=== PATIENT | male | born 1940 ===

== ENCOUNTER 2016-12-12 11:37 | Emergency (ER) | payer MEDICARE, OTHER ==
[2016-12-12 11:37] VITALS: BMI 29.1
[2016-12-12] MEDS ORDERED: Sodium Chloride 0.9% 1,000 ML IV ONE ×2 (11:57→14:14)
--- NOTE | 2016-12-12 12:11 | C.PDOC ---
History Of Present Illness 76-year-old male, PMHx includes Diabetes, Hypertension, HIV, Asthma, presents to the emergency department with complaints of mild dizziness that is associated with an elevated blood sugar. Patient has been evaluated in the ED for same complaint multiple times in past. Denies any nausea/vomiting, diarrhea , fevers, chills, shortness of breath, headaches, chest pain or any other associated symptoms. No other complaints at this time. Time Seen by Provider: 12/12/16 11:54 Chief Complaint (Nursing): High Blood Sugar History Per: Patient History/Exam Limitations: no limitations Onset/Duration Of Symptoms: Days Current Symptoms Are (Timing): Still Present Past Medical History Reviewed: Historical Data, Nursing Documentation, Vital Signs Vital Signs: Last Vital Signs Temp 98.2 F 12/12/16 15:21 Pulse 73 12/12/16 15:21 Resp 16 12/12/16 15:21 BP 126/81 12/12/16 15:21 Pulse Ox 96 12/12/16 15:21 - Medical History PMH: Arthritis (Not on medicine), Asthma, Cardia Arrhythmia, Diabetes, HIV (On anti-viral meds), HTN, Hypercholesterolemia, Hypothyroidism Surgical History: - [facility] Procedures CORNEAL REPAIR NEC (10/27/13) CORONAR ARTERIOGR-2 CATH (05/13/14) LEFT HEART CARDIAC CATH (05/13/14) LT HEART ANGIOCARDIOGRAM (05/13/14) PTERYGIUM EXCISION NEC (10/27/13) Family History: States: Unknown Family Hx - Social History Hx Tobacco Use: No Hx Alcohol Use: No Hx Substance Use: No - Immunization History Hx Tetanus Toxoid Vaccination: No Hx Influenza Vaccination: No Hx Pneumococcal Vaccination: No Review Of Systems Except As Marked, All Systems Reviewed And Found Negative. Constitutional: Negative for: Fever, Chills Cardiovascular: Negative for: Chest Pain, Palpitations Gastrointestinal: Negative for: Nausea, Vomiting Genitourinary: Negative for: Dysuria, Frequency Musculoskeletal: Negative for: Back Pain Skin: Negative for: Rash Neurological: Positive for: Dizziness. Negative for: Weakness, Numbness Physical Exam - Physical Exam Appears: Non-toxic, No Acute Distress Skin: Warm, Dry, No Rash Head: Atraumatic, Normacephalic Eye(s): bilateral: Normal Inspection, PERRL Nose: Normal Oral Mucosa: Moist Lips: Normal Appearing Neck: Normal ROM Cardiovascular: Rhythm Regular Respiratory: Normal Breath Sounds, No Accessory Muscle Use Extremity: Normal ROM Neurological/Psych: Oriented x3, Normal Speech ED Course And Treatment - Laboratory Results Result Diagrams: 12/12/16 12:34 12/12/16 12:34 O2 Sat by Pulse Oximetry: 98 Medical Decision Making Medical Decision Making: Impression Dizziness and elevated blood sugar. Plan: * VBG * EKG * CMP, Trop I * CBC * IVF, Urinalysis * Reassess and Disposition 3:40pm - Patient is feeling better. Patient instructed to follow up with his doctor tomorrow for a blood sugar check. Disposition - Disposition Disposition: HOME/ ROUTINE Disposition Time: 15:30 Condition: IMPROVED Additional Instructions: Thank you for letting us take care of you today. Your provider was Dr. Simms. You were treated for high blood sugar. The emergency medical care you received today was directed at your acute symptoms. If you were prescribed any medication, please fill it and take as directed. It may take several days for your symptoms to resolve. Return to the Emergency Department if your symptoms worsen, do not improve, or if you have any other problems. Please contact your doctor or call one of the physicians/clinics you have been referred to that are listed on the Patient Visit Information form that is included in your discharge packet. Bring any paperwork you were given at discharge with you along with any medications you are taking to your follow up visit. Our treatment cannot replace ongoing medical care by a primary care provider (PCP) outside of the emergency department. Thank you for allowing the [facility] team to be part of your care today. Follow up with your doctor tomorrow for a blood sugar check. Instructions: Diabetic Hyperglycemia (ED) - Clinical Impression Clinical Impression: Hyperglycemia - Scribe Statement The provider has reviewed the documentation as recorded by the Priya Tamayo All medical record entries made by the Floribtiesha were at my direction and personally dictated by me. I have reviewed the chart and agree that the record accurately reflects my personal performance of the history, physical exam, medical decision making, and the department course for this patient. I have also personally directed, reviewed, and agree with the discharge instructions and disposition.
[2016-12-12] MEDS ORDERED: Sodium Chloride 0.9% 1,000 ML ONE ×2 (12:36→14:18)
[2016-12-12 12:38] LABS: BASO % 0.5 % (0.0-2.0); EOS # 0.3 K/uL (0.0-0.7); EOS % 5.3 % (0.0-4.0); HEMATOCRIT 44.1 % (35.0-51.0); LYMPH # 1.8 K/uL (1.0-4.3); LYMPH % 36.2 % (20.0-40.0); MEAN CELL VOLUME 94.8 fL (80.0-94.0); MEAN CORPUSCULAR HEMOGLOBIN 32.1 pg (27.0-31.0); MEAN CORPUSCULAR HGB CONC 33.9 g/dL (33.0-37.0); MONO # 0.4 K/uL (0.0-0.8); MONO % 8.2 % (0.0-10.0); RED CELL DISTRIBUTION WIDTH 12.9 % (11.5-14.5); WHITE BLOOD COUNT 5.1 K/uL (4.8-10.8)
[2016-12-12 12:41] LABS: RBC URINE < 1 /hpf (0-3); URINE BILIRUBIN NEGATIVE (NEGATIVE); URINE COLOR Straw (YELLOW); URINE GLUCOSE (UA) 3+ mg/dL (Normal); URINE KETONE 1+ mg/dL (NEGATIVE); URINE LEUKOCYTE ESTERASE NEG Leu/uL (Negative); URINE PROTEIN 1+ mg/dL (NEGATIVE); URINE UROBILINOGEN NORMAL mg/dL (0.2-1.0)
[2016-12-12 12:43] LABS: VENOUS BLOOD GAS BASE EXCESS -1.7 mmol/L (0.0-2.0); VENOUS BLOOD GAS PCO2 45 mmHg (40-60); VENOUS BLOOD PH 7.34 (7.32-7.43)
[2016-12-12 12:44] LABS: URINE BLOOD TRACE (NEGATIVE)
[2016-12-12] MEDS ORDERED: (Novolin R) Insulin Human Regular 100 units/ml vial IV STA (12:48)
[2016-12-12 12:49] LABS: CHLORIDE 96 mmol/L (98-107); POTASSIUM 4.3 mmol/L (3.6-5.2); SODIUM 136 mmol/L (132-148)
[2016-12-12 12:51] LABS: GFR AFRICAN-AMERICAN > 60
[2016-12-12 12:52] LABS: ALB/GLOB RATIO 1.7 (1.0-2.1); ALKALINE PHOSPHATASE 63 U/L (38-126); ALT/SGPT 18 U/L (21-72); AST/SGOT 19 U/L (17-59); BILIRUBIN,TOTAL 0.6 mg/dL (0.2-1.3); BLOOD UREA NITROGEN 24 mg/dL (9-20); CARBON DIOXIDE 25 mmol/L (22-30); GLUCOSE,RANDOM 373 mg/dL (75-110); TOTAL PROTEIN 6.8 g/dL (6.3-8.3)
[2016-12-12 12:53] LABS: CALCIUM 9.5 mg/dl (8.6-10.4)
[2016-12-12] MEDS ORDERED: (Novolin R) Insulin Human Regular 100 units/ml vial ONE (13:11)
[2016-12-12 15:22] VITALS: PULSE 73; RESP 16
[2016-12-12 15:43] VITALS: O2SAT 98
[2016-12-12 16:03] VITALS: BP 134/78; TEMP 97.8
--- NOTE | 2017-01-10 11:55 | CARD ---
APPROVED REPORT EKG Measurement Heart [id number] HI 160P46 [id number] <Conclusion> Normal sinus rhythm Normal ECG
== END 2016-12-12 16:02 | disposition home or self-care (01) ==
LOC: C.ER 11:37
DX: E11.65 Type 2 diabetes mellitus with hyperglycemia (principal)
CPT/HCPCS: 80053; 81001; 82009; 82803; 82948; 84484; 85025; 93005; 96360; 99284; J7040

== ENCOUNTER 2017-02-05 12:15 | Emergency (ER) | payer MEDICARE, OTHER ==
[2017-02-05 12:16] VITALS: BMI 29.1
[2017-02-05 12:32] VITALS: TEMP 97.5
[2017-02-05 13:02] LABS: BASO % 0.4 % (0.0-2.0); EOS # 0.1 K/uL (0.0-0.7); EOS % 2.8 % (0.0-4.0); HEMATOCRIT 40.9 % (35.0-51.0); LYMPH # 1.8 K/uL (1.0-4.3); LYMPH % 37.1 % (20.0-40.0); MEAN CELL VOLUME 94.6 fL (80.0-94.0); MEAN CORPUSCULAR HEMOGLOBIN 32.2 pg (27.0-31.0); MEAN PLATELET VOLUME 7.9 fL (7.2-11.7); MONO # 0.4 K/uL (0.0-0.8); NRBC % 0.2 % (0.0-2.0); RED CELL DISTRIBUTION WIDTH 13.6 % (11.5-14.5); WHITE BLOOD COUNT 4.7 K/uL (4.8-10.8)
[2017-02-05 13:09] LABS: DRAW SITE VBG; VENOUS BLOOD GAS BASE EXCESS 2.5 mmol/L (0.0-2.0); VENOUS BLOOD GAS PCO2 48 mmHg (40-60); VENOUS BLOOD PH 7.38 (7.32-7.43)
[2017-02-05] MEDS ORDERED: Sodium Chloride 0.9% 1,000 ML IV ONE ×2 (13:13→15:09)
[2017-02-05 13:23] LABS: CHLORIDE 93 mmol/L (98-107); POTASSIUM 4.2 mmol/L (3.6-5.2); SODIUM 133 mmol/L (132-148)
[2017-02-05 13:25] LABS: ALB/GLOB RATIO 1.7 (1.0-2.1); AST/SGOT 18 U/L (17-59); BILIRUBIN,TOTAL 0.7 mg/dL (0.2-1.3); CARBON DIOXIDE 27 mmol/L (22-30); GFR AFRICAN-AMERICAN > 60; TOTAL PROTEIN 6.9 g/dL (6.3-8.3)
[2017-02-05 13:26] LABS: ALKALINE PHOSPHATASE 75 U/L (38-126); ALT/SGPT 22 U/L (21-72); BLOOD UREA NITROGEN 24 mg/dL (9-20)
--- NOTE | 2017-02-05 14:03 | RAD ---
PROCEDURE: CHEST RADIOGRAPH, 1 VIEW HISTORY: weak COMPARISON: Comparison is made to the previous study dated 05/31/2016 FINDINGS: LUNGS: No significant interval change in the lungs noted since the previous exam. PLEURA: No pneumothorax or pleural fluid seen. CARDIOVASCULAR: Normal. OSSEOUS STRUCTURES: No significant abnormalities. VISUALIZED UPPER ABDOMEN: Normal. OTHER FINDINGS: None. IMPRESSION: No significant interval change.
[2017-02-05 14:12] LABS: GLUCOSE,RANDOM 610 mg/dL (75-110)
[2017-02-05] MEDS ORDERED: (Novolin R) Insulin Human Regular 100 units/ml vial IV ONE (14:20)
[2017-02-05] MEDS ORDERED: (Novolin R) Insulin Human Regular 100 units/ml vial ONE (14:31)
--- NOTE | 2017-02-05 14:56 | C.PDOC ---
History Of Present Illness 76 year old patient, with a past medical history of Arthritis, Asthma, Diabetes , HIV (On HAART), HTN, Hypercholesterolemia, Hypothyroidism, presents to the ED complaining of generalized weakness and fatigue. Patient also notes his feet have been swollen, but he is unsure for how long. Patient denies chest pain, shortness of breath, cough, fever, abdominal pain, nausea, vomiting, or diarrhea. Patient admits that his blood sugars are "typically high." Time Seen by Provider: 02/05/17 12:45 Chief Complaint (Nursing): Flu-like Symptoms History Per: Patient History/Exam Limitations: no limitations Onset/Duration Of Symptoms: Worse Since (today) Current Symptoms Are (Timing): Still Present Location Of Pain: Other (generalized weakness and fatigue) Sick Contacts (Context): None Severity: Mild Recent travel outside of the [place]: No Past Medical History Reviewed: Historical Data, Nursing Documentation, Vital Signs Vital Signs: Last Vital Signs Temp 97.5 F L 02/05/17 16:30 Pulse 77 02/05/17 16:30 Resp 20 02/05/17 16:30 BP 140/71 02/05/17 16:30 Pulse Ox 97 02/05/17 16:30 - Medical History PMH: Arthritis (Not on medicine), Asthma, Cardia Arrhythmia, Diabetes, HIV (On anti-viral meds), HTN, Hypercholesterolemia, Hypothyroidism Surgical History: - [facility] Procedures CORNEAL REPAIR NEC (10/27/13) CORONAR ARTERIOGR-2 CATH (05/13/14) LEFT HEART CARDIAC CATH (05/13/14) LT HEART ANGIOCARDIOGRAM (05/13/14) PTERYGIUM EXCISION NEC (10/27/13) Family History: States: No Known Family Hx - Social History Hx Tobacco Use: No Hx Alcohol Use: No Hx Substance Use: No - Immunization History Hx Tetanus Toxoid Vaccination: No Hx Influenza Vaccination: No Hx Pneumococcal Vaccination: No Review Of Systems Except As Marked, All Systems Reviewed And Found Negative. Constitutional: Positive for: Weakness (generalized). Negative for: Fever, Other (fatigue) Cardiovascular: Negative for: Chest Pain, Palpitations Respiratory: Negative for: Cough, Shortness of Breath Gastrointestinal: Negative for: Nausea, Vomiting, Abdominal Pain, Diarrhea Genitourinary: Negative for: Dysuria, Hematuria Physical Exam - Physical Exam Appears: Well, Non-toxic, Other (mildly uncomfortable) Skin: Warm, Dry Head: Normacephalic Oral Mucosa: Moist Neck: Normal ROM, Supple Chest: Symmetrical Cardiovascular: Rhythm Regular Respiratory: Normal Breath Sounds, No Rales, No Rhonchi, No Wheezing Gastrointestinal/Abdominal: Normal Exam, Bowel Sounds, Soft, No Tenderness Back: Normal Inspection, No CVA Tenderness Extremity: Normal ROM, Pedal Edema (+1 pitting, bilateral LEs), No Calf Tenderness Pulses: Left Dorsalis Pedis: Normal, Right Dorsalis Pedis: Normal Neurological/Psych: Oriented x3, Normal Motor, Normal Sensation Gait: Steady ED Course And Treatment - Laboratory Results Result Diagrams: 02/05/17 12:54 02/05/17 12:54 ECG: Interpreted By Me, Viewed By Me (NSR 78 bpm, left axis deviation, RBBB, no acute ST/T wave changes ) ECG Rhythm: Sinus Rhythm, R BBB ECG Interpretation: No Acute Changes Interpretation Of ECG: left axis deviation. RBBB. No acute ST-T wave changes. O2 Sat by Pulse Oximetry: 95 (room air) Pulse Ox Interpretation: Normal - Radiology CXR: Viewed By Me, Read By Radiologist (Pascual Huerta) CXR Interpretation: Yes: No Acute Disease Progress Note: Blood work, EKG, CXR, UA ordered and reviewed. Patient given IV NS bolus x 2 and IV insulin. Reevaluation Time: 16:15 Reassessment Condition: Improved (Patient reassessed, and states he is feeling much better. CXR and UA (-) for infection. Blood work without evidence of acidosis/anion gap. Patient is comfortable being discharged home. He was instructed to follow up in medical clinic in 1-2 days for further management of his diabetes medications, etc. He understands he should return to ED immediately if he develops any concerning symptoms.) Critical Care Time - Critical Care Note Total Time (in mins): 35 Documented critical care: time excludes all time spent performing seperately billable procedures. Medical Decision Making Medical Decision Making: differential diagnoses considered: dehydation, HONK, DKA, pneumonia, UTI, viral syndrome, HIV related infection, CT/ACS, arrythmia Disposition Counseled Patient/Family Regarding: Studies Performed, Diagnosis, Need For Followup - Disposition Referrals: [facility] [Outside] Disposition: HOME/ ROUTINE Disposition Time: 16:15 Condition: STABLE Additional Instructions: SEGUIMIENTO CON MURDOCK DOCTOR / CLNICA EN 1-2 MOLINA USE LA INSULINA SEGN LO DIRIGIDO DEVUELVA A LA THANIA DE EMERGENCIA SI DESARROLLA SINTOMAS EMPEORARAN Instructions: Diabetic Hyperglycemia (ED) Print Language: KINYARWANDA - POA Present On Arrival: None - Clinical Impression Clinical Impression: Hyperglycemia - Scribe Statement The provider has reviewed the documentation as recorded by the Scribe Crissy Trivedi Provider Attestation: All medical record entries made by the Scribe were at my direction and personally dictated by me. I have reviewed the chart and agree that the record accurately reflects my personal performance of the history, physical exam, medical decision making, and the department course for this patient. I have also personally directed, reviewed, and agree with the discharge instructions and disposition.
[2017-02-05 14:58] LABS: URINE BILIRUBIN NEGATIVE (NEGATIVE); URINE BLOOD NEGATIVE (NEGATIVE); URINE COLOR Straw (YELLOW); URINE GLUCOSE (UA) 3+ mg/dL (Normal); URINE KETONE 1+ mg/dL (NEGATIVE); URINE LEUKOCYTE ESTERASE NEG Leu/uL (Negative); URINE PROTEIN NEGATIVE (NEGATIVE); URINE UROBILINOGEN NORMAL mg/dL (0.2-1.0)
--- NOTE | 2017-02-05 15:03 | C.PDOC ---
Time Seen by Provider: 02/05/17 12:45 Chief Complaint (Nursing): Flu-like Symptoms Past Medical History Vital Signs: Last Vital Signs Temp 97.5 F L 02/05/17 12:30 Pulse 71 02/05/17 14:00 Resp 14 02/05/17 14:00 BP 140/74 02/05/17 14:00 Pulse Ox 95 02/05/17 14:00 - Medical History PMH: Arthritis (Not on medicine), Asthma, Cardia Arrhythmia, Diabetes, HIV (On anti-viral meds), HTN, Hypercholesterolemia, Hypothyroidism Denies: Chronic Kidney Disease Surgical History: - [facility] Procedures CORNEAL REPAIR NEC (10/27/13) CORONAR ARTERIOGR-2 CATH (05/13/14) LEFT HEART CARDIAC CATH (05/13/14) LT HEART ANGIOCARDIOGRAM (05/13/14) PTERYGIUM EXCISION NEC (10/27/13) Family History: States: Unknown Family Hx - Social History Hx Tobacco Use: No Hx Alcohol Use: No Hx Substance Use: No - Immunization History Hx Tetanus Toxoid Vaccination: No Hx Influenza Vaccination: No Hx Pneumococcal Vaccination: No ED Course And Treatment - Laboratory Results Result Diagrams: 02/05/17 12:54 02/05/17 12:54 O2 Sat by Pulse Oximetry: 95
[2017-02-05 16:31] VITALS: BP 140/71; PULSE 77; RESP 20
--- NOTE | 2017-02-10 20:53 | CARD ---
APPROVED REPORT EKG Measurement Heart [id number] MD 158P58 [id number] <Conclusion> Normal sinus rhythm Left axis deviation Incomplete right bundle branch block Abnormal ECG
[2017-02-13 17:14] VITALS: O2SAT 95
== END 2017-02-05 16:31 | disposition home or self-care (01) ==
LOC: C.ER 12:15
DX: E11.65 Type 2 diabetes mellitus with hyperglycemia (principal)
CPT/HCPCS: 71010; 80053; 81001; 82009; 82550; 82803; 82948; 83880; 84484; 85025; 93005; 96361; 96374; 99285; J7040

== ENCOUNTER 2017-03-24 16:01 | Emergency (ER) | payer MEDICARE, OTHER ==
[2017-03-24 16:16] VITALS: BMI 28.0
[2017-03-24 17:09] LABS: BASO % 0.6 % (0.0-2.0); EOS # 0.1 K/uL (0.0-0.7); EOS % 2.5 % (0.0-4.0); LYMPH # 1.7 K/uL (1.0-4.3); LYMPH % 38.6 % (20.0-40.0); MEAN CELL VOLUME 94.5 fL (80.0-94.0); MEAN CORPUSCULAR HEMOGLOBIN 32.8 pg (27.0-31.0); MEAN CORPUSCULAR HGB CONC 34.7 g/dL (33.0-37.0); MEAN PLATELET VOLUME 7.8 fL (7.2-11.7); MONO # 0.3 K/uL (0.0-0.8); MONO % 7.5 % (0.0-10.0); RED CELL DISTRIBUTION WIDTH 13.5 % (11.5-14.5); WHITE BLOOD COUNT 4.3 K/uL (4.8-10.8)
[2017-03-24 17:18] LABS: CHLORIDE 93 mmol/L (98-107)
[2017-03-24 17:19] LABS: POTASSIUM 4.5 mmol/L (3.6-5.2); SODIUM 132 mmol/L (132-148)
[2017-03-24 17:21] LABS: ALB/GLOB RATIO 1.4 (1.0-2.1); ALKALINE PHOSPHATASE 59 U/L (38-126); ALT/SGPT 25 U/L (21-72); AST/SGOT 16 U/L (17-59); BILIRUBIN,TOTAL 0.8 mg/dL (0.2-1.3); BLOOD UREA NITROGEN 19 mg/dL (9-20); CARBON DIOXIDE 19 mmol/L (22-30); GFR AFRICAN-AMERICAN > 60; TOTAL PROTEIN 6.3 g/dL (6.3-8.3)
[2017-03-24 17:22] LABS: CALCIUM 9.4 mg/dl (8.6-10.4); GLUCOSE,RANDOM 353 mg/dL (75-110)
[2017-03-24] MEDS ORDERED: (Novolin R) Insulin Human Regular 100 units/ml vial IV STA (18:02)
[2017-03-24] MEDS ORDERED: Sodium Chloride 0.9% 500 ML IV ONE (18:02)
--- NOTE | 2017-03-24 18:08 | C.PDOC ---
History Of Present Illness 76 y/o male presents to the emergency department with complaints of bilateral foot pain which onset while riding the bus today. Pt denies dizziness, chest pain, SOB, fever, chills or any other complaints. Pt is IDDM, used insulin this morning. Pt denies poyuria or polydypsia. Pt has lived alone for the past 20 years. Time Seen by Provider: 03/24/17 16:54 Chief Complaint (Nursing): Dizziness/Lightheaded History Per: Patient History/Exam Limitations: no limitations Onset/Duration Of Symptoms: Hrs Current Symptoms Are (Timing): Still Present Activity At Onset Of Symptoms: Sitting Severity: Mild Recent travel outside of the [place]: No Past Medical History Reviewed: Historical Data, Nursing Documentation, Vital Signs Vital Signs: Last Vital Signs Temp 98.6 F 03/24/17 16:16 Pulse 85 03/24/17 16:16 Resp 18 03/24/17 16:16 BP 137/82 03/24/17 16:16 Pulse Ox 97 03/24/17 18:10 - Medical History PMH: Arthritis, Asthma, Cardia Arrhythmia, Diabetes, HIV (On anti-viral meds), HTN, Hypercholesterolemia, Hypothyroidism Surgical History: - [facility] Procedures CORNEAL REPAIR NEC (10/27/13) CORONAR ARTERIOGR-2 CATH (05/13/14) LEFT HEART CARDIAC CATH (05/13/14) LT HEART ANGIOCARDIOGRAM (05/13/14) PTERYGIUM EXCISION NEC (10/27/13) Family History: States: Unknown Family Hx - Social History Hx Tobacco Use: No Hx Alcohol Use: No Hx Substance Use: No - Immunization History Hx Tetanus Toxoid Vaccination: No Hx Influenza Vaccination: No Hx Pneumococcal Vaccination: No Review Of Systems Except As Marked, All Systems Reviewed And Found Negative. Constitutional: Negative for: Fever, Chills Cardiovascular: Negative for: Chest Pain Respiratory: Negative for: Shortness of Breath Gastrointestinal: Negative for: Vomiting Musculoskeletal: Positive for: Other (bilateral feet pain) Neurological: Negative for: Dizziness Physical Exam - Physical Exam Appears: Non-toxic, No Acute Distress, Other (discheveled, dysconjugate gaze) Skin: Warm, Dry, No Rash Head: Atraumatic, Normacephalic Chest: Symmetrical Cardiovascular: Rhythm Regular Respiratory: Normal Breath Sounds, No Rales, No Rhonchi, No Wheezing Gastrointestinal/Abdominal: Normal Exam, Soft, No Tenderness Extremity: Normal ROM, No Pedal Edema, No Calf Tenderness, Other (Feet foul smelling, unkempt. No lesions. ) Neurological/Psych: Oriented x3, Normal Speech, Normal Cognition ED Course And Treatment - Laboratory Results Result Diagrams: 03/24/17 17:05 03/24/17 17:05 Lab Interpretation: Abnormal (elev glu, insulin 8 IV and recheck 1 hr later 191 , ok) ECG: Interpreted By Me ECG Rhythm: Sinus Rhythm Rate From EC (BPM) O2 Sat by Pulse Oximetry: 97 (room air) Pulse Ox Interpretation: Normal - Radiology CXR: Interpreted by Me, Viewed By Me CXR Interpretation: Yes: No Acute Disease Progress Note: Plan: EKG, CXR, novolin, UA, IV fluids. Reevaluation Time: 20:00 Reassessment Condition: Improved Medical Decision Making Medical Decision Making: proud he lives alone for 20 years and does not want help checking FS and taking insulin @ home, has all the supplies he needs @ home. Disposition Doctor Will See Patient In The: Office Counseled Patient/Family Regarding: Studies Performed, Diagnosis - Disposition Disposition: HOME/ ROUTINE Disposition Time: 20:00 Condition: GOOD Forms: [employer] (Emirati) - Clinical Impression Clinical Impression: Pain in both feet, Hyperglycemia - Scribe Statement The provider has reviewed the documentation as recorded by the Priya Montague Provider Attestation: All medical record entries made by the Floribe were at my direction and personally dictated by me. I have reviewed the chart and agree that the record accurately reflects my personal performance of the history, physical exam, medical decision making, and the department course for this patient. I have also personally directed, reviewed, and agree with the discharge instructions and disposition.
[2017-03-24] MEDS ORDERED: (Novolin R) Insulin Human Regular 100 units/ml vial ONE (18:50)
[2017-03-24 20:19] VITALS: BP 124/87; PULSE 83; RESP 16; TEMP 98.4; O2SAT 98
--- NOTE | 2017-03-25 08:49 | RAD ---
PROCEDURE: CHEST RADIOGRAPH, 1 VIEW HISTORY: Shortness of breath COMPARISON: None available. FINDINGS: LUNGS: Mild venous congestion. Right peritracheal airspace prominence may represent prominent vasculature. PLEURA: No pneumothorax or pleural fluid seen. CARDIOVASCULAR: Normal. OSSEOUS STRUCTURES: No significant abnormalities. VISUALIZED UPPER ABDOMEN: Normal. OTHER FINDINGS: None. IMPRESSION: Mild venous congestion. Right peritracheal airspace prominence may represent prominent vasculature.
--- NOTE | 2017-03-25 19:13 | CARD ---
APPROVED REPORT EKG Measurement Heart [id number] MS 156P68 [id number] <Conclusion> Normal sinus rhythm Left axis deviation. Otherwise normal for age.
== END 2017-03-24 20:18 | disposition home or self-care (01) ==
LOC: C.ER 16:01
DX: M79.672 Pain in left foot (principal); M79.671 Pain in right foot; E11.65 Type 2 diabetes mellitus with hyperglycemia; Z79.4 Long term (current) use of insulin
CPT/HCPCS: 71010; 80053; 82948; 83880; 84484; 85025; 93005; 96374; 99285; J7040

== ENCOUNTER 2017-03-26 15:02 | Emergency (ER) | payer MEDICARE, OTHER ==
[2017-03-26 15:03] VITALS: BMI 28.0
[2017-03-26 15:14] VITALS: TEMP 97.8
[2017-03-26] MEDS ORDERED: Sodium Chloride 0.9% 1,000 ML IV SCH (15:30)
--- NOTE | 2017-03-26 15:35 | C.PDOC ---
History Of Present Illness 76 y/o male presents to the ED with complaints of not feeling well since yesterday morning. Patient feels that his blood sugar may be high. Accucheck done in triage was 83mg/dl. Of note, patient was seen here 2 days ago for similar complaints with negative work up. Blood sugar at that time was over 300mg/dl. Otherwise, denies any chest pain, shortness of breath, nausea, abdominal pain, lightheadedness, dizziness, headache, or fever. Time Seen by Provider: 03/26/17 15:19 Chief Complaint (Nursing): Dizziness/Lightheaded History Per: Patient History/Exam Limitations: no limitations Onset/Duration Of Symptoms: Days (1) Current Symptoms Are (Timing): Still Present Associated Symptoms Preceding Syncopal Episode: Lightheadedness Seizure Or Post-ictal Symptoms: None Fall Associated With With Symptoms: No Severity: None Pain Scale Rating Of: 0 Recent travel outside of the [place]: No Additional History Per: Patient Past Medical History Reviewed: Historical Data, Nursing Documentation, Vital Signs Vital Signs: Last Vital Signs Temp 97.8 F 03/26/17 15:12 Pulse 74 03/26/17 17:30 Resp 20 03/26/17 17:30 BP 114/66 03/26/17 17:30 Pulse Ox 96 03/26/17 17:30 - Medical History PMH: Arthritis, Asthma, Cardia Arrhythmia, Diabetes, HIV (On anti-viral meds), HTN, Hypercholesterolemia, Hypothyroidism Surgical History: - [facility] Procedures CORNEAL REPAIR NEC (10/27/13) CORONAR ARTERIOGR-2 CATH (05/13/14) LEFT HEART CARDIAC CATH (05/13/14) LT HEART ANGIOCARDIOGRAM (05/13/14) PTERYGIUM EXCISION NEC (10/27/13) Family History: States: Unknown Family Hx - Social History Hx Tobacco Use: No Hx Alcohol Use: No Hx Substance Use: No - Immunization History Hx Tetanus Toxoid Vaccination: No Hx Influenza Vaccination: No Hx Pneumococcal Vaccination: No Review Of Systems Except As Marked, All Systems Reviewed And Found Negative. Constitutional: Positive for: Weakness ("not feeling well"). Negative for: Fever, Chills Cardiovascular: Negative for: Chest Pain, Palpitations, Light Headedness Respiratory: Negative for: Shortness of Breath Gastrointestinal: Negative for: Nausea, Vomiting, Abdominal Pain Skin: Negative for: Rash, Bruising Neurological: Negative for: Weakness, Numbness, Headache, Dizziness Physical Exam - Physical Exam Appears: Non-toxic, No Acute Distress Skin: Normal Color, Warm, Dry Head: Atraumatic, Normacephalic Eye(s): bilateral: Normal Inspection Oral Mucosa: Moist Neck: Normal ROM, Supple Chest: Symmetrical, No Tenderness Cardiovascular: Rhythm Regular, No Murmur Respiratory: Normal Breath Sounds, No Rales, No Rhonchi, No Wheezing Gastrointestinal/Abdominal: Soft, No Tenderness Extremity: Normal ROM Extremity: Bilateral: Atraumatic, Normal ROM Neurological/Psych: Oriented x3, Normal Speech Gait: Steady ED Course And Treatment - Laboratory Results Result Diagrams: 03/26/17 15:57 03/26/17 15:57 Lab Interpretation: No Acute Changes ECG: Interpreted By Me ECG Rhythm: Sinus Rhythm, R BBB ECG Interpretation: No Acute Changes Rate From EC O2 Sat by Pulse Oximetry: 97 (RA) Pulse Ox Interpretation: Normal - Radiology CXR: Interpreted by Me CXR Interpretation: Yes: No Acute Disease Progress Note: Plan: blood work, urinalysis, urine culture, EKG, CXR. Patient was given IV fluids. Treated with sandwich for low blood sugar. 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 - Scribe Statement The provider has reviewed the documentation as recorded by the Floribtiesha Trivedi All medical record entries made by the Scribe were at my direction and personally dictated by me. I have reviewed the chart and agree that the record accurately reflects my personal performance of the history, physical exam, medical decision making, and the department course for this patient. I have also personally directed, reviewed, and agree with the discharge instructions and disposition.
--- NOTE | 2017-03-26 15:43 | RAD ---
HISTORY: COMPARISON: 03/24/2017 TECHNIQUE: Chest PA and lateral FINDINGS: LINES AND TUBES: None LUNG AND PLEURA: The lungs are well inflated and clear. There is linear atelectasis/ scarring in the left lower lobe. There are no pleural effusions or pneumothorax. HEART AND MEDIASTINUM: The heart is not enlarged. The hilar and mediastinal contours are within normal limits. SKELETAL STRUCTURES: The bony structures are within normal limits for the patient's age. VISUALIZED UPPER ABDOMEN: Normal. OTHER FINDINGS: None. IMPRESSION: No active pulmonary disease.
[2017-03-26 16:05] LABS: BASO % 0.5 % (0.0-2.0); EOS # 0.2 K/uL (0.0-0.7); EOS % 2.9 % (0.0-4.0); HEMATOCRIT 43.7 % (35.0-51.0); LYMPH # 2.6 K/uL (1.0-4.3); LYMPH % 45.2 % (20.0-40.0); MEAN CELL VOLUME 94.7 fL (80.0-94.0); MEAN CORPUSCULAR HEMOGLOBIN 32.9 pg (27.0-31.0); MEAN CORPUSCULAR HGB CONC 34.7 g/dL (33.0-37.0); MEAN PLATELET VOLUME 7.4 fL (7.2-11.7); MONO # 0.5 K/uL (0.0-0.8); MONO % 8.5 % (0.0-10.0); RED CELL DISTRIBUTION WIDTH 13.5 % (11.5-14.5); WHITE BLOOD COUNT 5.7 K/uL (4.8-10.8)
[2017-03-26 16:35] LABS: RBC URINE 1 /hpf (0-3); URINE BACTERIA RARE (<OCC); URINE BILIRUBIN NEGATIVE (NEGATIVE); URINE BLOOD NEGATIVE (NEGATIVE); URINE COLOR Yellow (YELLOW); URINE GLUCOSE (UA) 3+ mg/dL (Normal); URINE KETONE NEGATIVE (NEGATIVE); URINE LEUKOCYTE ESTERASE NEG Leu/uL (Negative); URINE PROTEIN 1+ mg/dL (NEGATIVE); URINE UROBILINOGEN NORMAL mg/dL (0.2-1.0); WBC URINE 4 /hpf (0-5)
[2017-03-26 16:50] LABS: CHLORIDE 99 mmol/L (98-107)
[2017-03-26 16:51] LABS: POTASSIUM 3.9 mmol/L (3.6-5.2); SODIUM 141 mmol/L (132-148)
[2017-03-26 16:53] LABS: ALB/GLOB RATIO 1.3 (1.0-2.1); ALKALINE PHOSPHATASE 50 U/L (38-126); ALT/SGPT 27 U/L (21-72); AST/SGOT 24 U/L (17-59); BILIRUBIN,TOTAL 0.7 mg/dL (0.2-1.3); BLOOD UREA NITROGEN 17 mg/dL (9-20); CARBON DIOXIDE 27 mmol/L (22-30); GFR AFRICAN-AMERICAN > 60; GLUCOSE,RANDOM 62 mg/dL (75-110); TOTAL PROTEIN 6.8 g/dL (6.3-8.3)
[2017-03-26 16:54] LABS: CALCIUM 9.4 mg/dl (8.6-10.4)
[2017-03-26 17:31] VITALS: BP 114/66; PULSE 74; RESP 20
[2017-03-26 17:51] VITALS: O2SAT 97
--- NOTE | 2017-03-27 11:00 | CARD ---
APPROVED REPORT EKG Measurement Heart [id number] MT 152P42 [id number] <Conclusion> Normal sinus rhythm Incomplete right bundle branch block Inferior infarct, age undetermined Abnormal ECG
== END 2017-03-26 17:36 | disposition home or self-care (01) ==
LOC: C.ER 15:02
DX: R53.1 Weakness (principal); I10 Essential (primary) hypertension; E78.00 Pure hypercholesterolemia, unspecified; E11.9 Type 2 diabetes mellitus without complications; Z21 Asymptomatic human immunodeficiency virus [HIV] infection status; Z79.899 Other long term (current) drug therapy
CPT/HCPCS: 71020; 80053; 81001; 82553; 83690; 84484; 85025; 87086; 93005; 96360; 96361; 99285; J7040

== ENCOUNTER 2017-08-12 16:36 | Emergency (ER) | payer MEDICARE, OTHER ==
[2017-08-12 16:36] VITALS: BMI 28.0
[2017-08-12] MEDS ORDERED: Lactated Ringer's 1,000 ML IVB STA (17:47)
[2017-08-12] MEDS ORDERED: Lactated Ringer's 1,000 ML ONE (17:59)
[2017-08-12 18:16] LABS: EOS # 0.1 K/uL (0.0-0.7); EOS % 3.2 % (0.0-4.0); HEMATOCRIT 36.5 % (35.0-51.0); LYMPH # 1.4 K/uL (1.0-4.3); LYMPH % 39.5 % (20.0-40.0); MEAN CELL VOLUME 93.3 fL (80.0-94.0); MEAN CORPUSCULAR HEMOGLOBIN 33.1 pg (27.0-31.0); MEAN CORPUSCULAR HGB CONC 35.5 g/dL (33.0-37.0); MEAN PLATELET VOLUME 7.2 fL (7.2-11.7); MONO # 0.3 K/uL (0.0-0.8); MONO % 8.9 % (0.0-10.0); NRBC % 0.1 % (0.0-2.0); RED CELL DISTRIBUTION WIDTH 13.3 % (11.5-14.5); WHITE BLOOD COUNT 3.5 K/uL (4.8-10.8)
[2017-08-12 18:31] LABS: ALKALINE PHOSPHATASE 47 U/L (38-126); ALT/SGPT 18 U/L (21-72); AST/SGOT 16 U/L (17-59); BILIRUBIN,TOTAL 0.7 mg/dL (0.2-1.3); BLOOD UREA NITROGEN 17 mg/dL (9-20); CALCIUM 8.6 mg/dl (8.6-10.4); CARBON DIOXIDE 25 mmol/L (22-30); CHLORIDE 96 mmol/L (98-107); GFR AFRICAN-AMERICAN > 60; GLUCOSE,RANDOM 329 mg/dL (75-110); MAGNESIUM 1.6 mg/dL (1.6-2.3); PHOSPHOROUS 2.8 mg/dL (2.5-4.5); POTASSIUM 4.4 mmol/L (3.6-5.2); SODIUM 128 mmol/L (132-148); TOTAL PROTEIN 5.5 g/dL (6.3-8.3)
[2017-08-12 18:43] LABS: ALB/GLOB RATIO 1.8 (1.0-2.1)
[2017-08-12 18:47] LABS: FREE T4 0.91 ng/dL (0.78-2.19)
[2017-08-12 19:01] LABS: THYROID STIMULATING HORMONE 6.64 mIU/L (0.46-4.68)
[2017-08-12 19:38] VITALS: RESP 14
--- NOTE | 2017-08-12 20:23 | C.PDOC ---
Time Seen by Provider: 08/12/17 16:58 Chief Complaint (Nursing): Dizziness/Lightheaded History Per: Patient Onset/Duration Of Symptoms: Days, Waxing/Waning Current Symptoms Are (Timing): Still Present Current Symptoms: Malaise Seizure Or Post-ictal Symptoms: None Fall Associated With With Symptoms: No Severity: Moderate - Symptoms Of CVA Recent Head Trauma: No Past Medical History Reviewed: Historical Data, Nursing Documentation, Vital Signs Vital Signs: Last Vital Signs Temp 97.4 F L 08/12/17 17:47 Pulse 66 08/12/17 19:37 Resp 14 08/12/17 19:37 BP 124/68 08/12/17 19:37 Pulse Ox 94 L 08/12/17 19:37 - Medical History PMH: Arthritis, Asthma, Cardia Arrhythmia, Diabetes, HIV (On anti-viral meds), HTN, Hypercholesterolemia, Hypothyroidism Surgical History: - [facility] Procedures CORNEAL REPAIR NEC (10/27/13) CORONAR ARTERIOGR-2 CATH (05/13/14) LEFT HEART CARDIAC CATH (05/13/14) LT HEART ANGIOCARDIOGRAM (05/13/14) PTERYGIUM EXCISION NEC (10/27/13) Family History: States: Unknown Family Hx - Social History Hx Tobacco Use: No Hx Alcohol Use: No Hx Substance Use: No - Immunization History Hx Tetanus Toxoid Vaccination: No Hx Influenza Vaccination: No Hx Pneumococcal Vaccination: No Review Of Systems Except As Marked, All Systems Reviewed And Found Negative. Constitutional: Positive for: Malaise. Negative for: Fever Cardiovascular: Negative for: Chest Pain Respiratory: Negative for: Cough, Shortness of Breath, Hemoptysis Gastrointestinal: Negative for: Vomiting, Abdominal Pain, Diarrhea Genitourinary: Negative for: Dysuria Musculoskeletal: Negative for: Neck Pain, Back Pain, Leg Pain Skin: Negative for: Rash Neurological: Negative for: Weakness, Numbness, Seizures, Altered Mental Status , Headache Physical Exam - Physical Exam Appears: Non-toxic, No Acute Distress Skin: Normal Color, Warm, Dry, No Rash Head: Atraumatic, Normacephalic Eye(s): bilateral: PERRL, EOMI Oral Mucosa: Moist Neck: Normal ROM, Supple Cardiovascular: Rhythm Regular Respiratory: Normal Breath Sounds, No Accessory Muscle Use Gastrointestinal/Abdominal: Soft, No Tenderness Back: No CVA Tenderness Extremity: Normal ROM Neurological/Psych: Oriented x3, Normal Motor, Normal Sensation ED Course And Treatment - Laboratory Results Result Diagrams: 08/12/17 18:09 08/12/17 18:09 ECG: Interpreted By Me, Viewed By Me ECG Rhythm: Sinus Rhythm, Nonspecific Changes Rate From EC O2 Sat by Pulse Oximetry: 99 Pulse Ox Interpretation: Normal Progress Note: Pt feels much better and wants to go home. Reassessment Condition: Improved Progress - Interventions Interventions:: Observation, Intravenous fluid - Data Reviewed Data Reviewed: Lab, EKG, Old records - Patient Status Patient status: Mostly improved - Continuity of Care Discussed patient case with:: Patient, ED Nurse - Patient Plan Patient Plan: Discharge, F/U with PCP, Continue present meds Disposition Counseled Patient/Family Regarding: Studies Performed, Diagnosis, Need For Followup - Disposition Referrals: Arianna Mcmanus MD [Non-Staff] - Disposition: HOME/ ROUTINE Disposition Time: 20:24 Condition: IMPROVED Additional Instructions: Follow up with your doctor this week for further evaluation and treatment. Return to the ER if you develop fever, pass out, worsening of symptoms or if you have any other concerns. Instructions: Fatigue (ED) - Clinical Impression Clinical Impression: Malaise and fatigue
[2017-08-12 20:44] VITALS: BP 123/64; PULSE 70; TEMP 97.6; O2SAT 98
--- NOTE | 2017-08-13 23:17 | CARD ---
APPROVED REPORT EKG Measurement Heart [id number] <Conclusion> Sinus rhythm Incomplete right bundle branch block Borderline ECG
== END 2017-08-12 21:06 | disposition home or self-care (01) ==
LOC: C.ER 16:36
DX: R53.81 Other malaise (principal); E11.9 Type 2 diabetes mellitus without complications; E78.00 Pure hypercholesterolemia, unspecified; I10 Essential (primary) hypertension; E03.9 Hypothyroidism, unspecified
CPT/HCPCS: 80053; 82948; 83735; 84100; 84439; 84443; 84484; 85025; 93005; 99285; J7120